=== PATIENT | female | born 1935 | race African-American/Black ===

== ENCOUNTER 2017-12-01 07:41 | Inpatient (IN) ==
[2017-12-01] MEDS ORDERED: hydrALAZINE 20 MG/1 ML VIAL IV STA (09:12)
[2017-12-01] MEDS ORDERED: ONDANSETRON 4 MG/2 ML VIAL IV PRN (09:12)
[2017-12-01 09:15] LABS: Basophils # 0.1 10*3/uL (0.0-0.2); Basophils % 0.6 % (0.0-0.8); Eosinophils # 0.4 10*3/uL (0.0-0.87); Eosinophils % 3.1 % (0.00-10.9); Hemoglobin 11.9 GM/DL (12.0-16.0); Immature Granulocytes % 0.5 %; Immature Granulocytes Absolute 0.06 #; Lymphocytes # 1.1 10*3/uL (1.4-4.0); Lymphocytes % 8.7 % (21.3-54.2); Mean Corpuscular Hemoglobin 34 PG (27-34); Mean Corpuscular Volume 99.2 FL (87-102); Mean Platelet Volume 11.1 FL (9.6-12.0); Monocytes # 0.7 10*3/uL (0.11-0.8); Monocytes % 5.5 % (1.7-12.7); Neutrophils # 10.1 10*3/uL (1.4-7.4); Neutrophils % 81.6 % (38.7-73.9); Platelet Count 226 T/CUMM (130-400); Red Blood Count 3.53 MC/CUMM (3.8-5.5); Red Cell Distribution Width 18.6 % (9.3-17.3); White Blood Count 12.4 T/CUMM (4-12)
[2017-12-01] MEDS ORDERED: DIPHENOXYLATE/ATROPINE 2.5-0.025 MG TABLET PO PRN (09:16)
[2017-12-01 09:29] LABS: Albumin 3.7 G/DL (3.4-5.0); Calcium 7.8 MG/DL (8.5-10.1); Osmolality,Calculated 286.7 MOS/KG (273-304); Potassium 4.2 MMOL/L (3.5-5.1); Total Protein 7.3 G/DL (6.4-8.3)
[2017-12-01 10:00] LABS: Apearance,Urine CLEAR (Clear); Bacteria,Urine Occasional /HPF (Few); Bilirubin,Urine Negative (Negative); Blood, Urine Negative (Negative); Glucose,Urine (UA) 150 mg/dL (Negative); Ketones,Urine Negative (Negative); Nitrite,Urine Negative (Negative); Protein,Urine 100 MG/DL; RBC,Urine <1 /HPF (0-4); Squamous Epithelial Cell,Urine Occasional /HPF (0-10); Urine Color Straw (Yellow); Urine Specific Gravity 1.005 (1.001-1.035); Urine Urobilinogen < 2.0 EU/DL (0.2-1.0); WBC,Urine 2 /HPF (0-6)
[2017-12-01] MEDS ORDERED: LEVOFLOXACIN INJ 750 MG in PREMIX 1 EACH IV ONE (10:00)
[2017-12-01] MEDS ORDERED: LEVOFLOXACIN INJ 150 ML IV ONE (10:18)
[2017-12-01] MEDS ORDERED: PANTOPRAZOLE 40 MG TABLET PO ONE (10:18)
[2017-12-01] MEDS ORDERED: hydrALAZINE 20 MG/1 ML VIAL ONE (10:18)
[2017-12-01] MEDS: PANTOPRAZOLE 40 MG TABLET PO SCH (10:25)
[2017-12-01] MEDS: ALBUTEROL/IPRATROPIUM 3 ML NEB RESP TX SCH ×4 (10:30→23:41)
[2017-12-01] MEDS: cloNIDine 0.1 MG TABLET PO SCH ×2 (17:00→20:56)
[2017-12-01] MEDS ORDERED: NIFEdipine 10 MG CAPSULE PO PRN (17:22)
[2017-12-01] MEDS: MELATONIN 3 MG TABLET PO SCH (20:56)
[2017-12-02] MEDS: ALBUTEROL/IPRATROPIUM 3 ML NEB RESP TX SCH ×6 (03:20→23:10)
[2017-12-02 05:33] LABS: Basophils # 0.1 10*3/uL (0.0-0.2); Basophils % 0.8 % (0.0-0.8); Eosinophils # 0.2 10*3/uL (0.0-0.87); Eosinophils % 1.6 % (0.00-10.9); Hematocrit 32.6 VOL% (35.7-47.0); Hemoglobin 10.7 GM/DL (12.0-16.0); Immature Granulocytes % 0.5 %; Immature Granulocytes Absolute 0.05 #; Lymphocytes # 1.3 10*3/uL (1.4-4.0); Lymphocytes % 14.2 % (21.3-54.2); Mean Corpuscular HGB Conc 32.8 GM/DL (32-36); Mean Corpuscular Hemoglobin 34 PG (27-34); Mean Corpuscular Volume 102.5 FL (87-102); Mean Platelet Volume 11.3 FL (9.6-12.0); Monocytes # 0.9 10*3/uL (0.11-0.8); Monocytes % 9.7 % (1.7-12.7); Neutrophils # 6.8 10*3/uL (1.4-7.4); Neutrophils % 73.2 % (38.7-73.9); Platelet Count 163 T/CUMM (130-400); Red Blood Count 3.18 MC/CUMM (3.8-5.5); Red Cell Distribution Width 18.3 % (9.3-17.3); White Blood Count 9.3 T/CUMM (4-12)
[2017-12-02 06:19] LABS: Calcium 7.7 MG/DL (8.5-10.1); Osmolality,Calculated 281.7 MOS/KG (273-304); Potassium 4.1 MMOL/L (3.5-5.1); Risk Ratio 3.32; Thyroid Stimulating Hormone 7.56 uIU/ml (0.358-3.74); VLDL CHOLESTEROL 19.4 MG/DL
[2017-12-02] MEDS: LEVOTHYROXINE 25 MCG TABLET PO SCH (06:33)
[2017-12-02] MEDS: METOPROLOL SUCCINATE XL 100 MG TABLET PO SCH (09:14)
[2017-12-02] MEDS: cloNIDine 0.1 MG TABLET PO SCH ×3 (09:14→21:32)
[2017-12-02] MEDS: FERROUS SULFATE 325 MG TABLET PO SCH (09:14)
[2017-12-02] MEDS: LORATADINE 10 MG TABLET PO SCH (09:14)
[2017-12-02] MEDS: PANTOPRAZOLE 40 MG TABLET PO SCH (09:14)
[2017-12-02] MEDS: MELATONIN 3 MG TABLET PO SCH (21:32)
[2017-12-03] MEDS: ALBUTEROL/IPRATROPIUM 3 ML NEB RESP TX SCH ×5 (03:10→20:39)
[2017-12-03] MEDS: LEVOTHYROXINE 25 MCG TABLET PO SCH (06:38)
[2017-12-03 07:19] LABS: Basophils % 0.5 % (0.0-0.8); Eosinophils # 0.9 10*3/uL (0.0-0.87); Eosinophils % 12.1 % (0.00-10.9); Hematocrit 27.5 VOL% (35.7-47.0); Immature Granulocytes % 0.4 %; Immature Granulocytes Absolute 0.03 #; Lymphocytes # 1.2 10*3/uL (1.4-4.0); Mean Corpuscular HGB Conc 32.7 GM/DL (32-36); Mean Corpuscular Hemoglobin 34 PG (27-34); Mean Corpuscular Volume 102.2 FL (87-102); Mean Platelet Volume 11.3 FL (9.6-12.0); Monocytes # 0.8 10*3/uL (0.11-0.8); Monocytes % 10.1 % (1.7-12.7); Neutrophils # 4.8 10*3/uL (1.4-7.4); Neutrophils % 61.9 % (38.7-73.9); Platelet Count 131 T/CUMM (130-400); Red Blood Count 2.69 MC/CUMM (3.8-5.5); Red Cell Distribution Width 17.7 % (9.3-17.3); White Blood Count 7.8 T/CUMM (4-12)
[2017-12-03 07:45] LABS: Eosinophils 10 % (0-10); Hypochromasia 1+; Lymphocytes 10 % (20-55); Segmented Neutrophils 73 % (50-85); Total Cells Counted 100
[2017-12-03 07:46] LABS: Macrocytosis 1+; Platelet Estimate Adequate
[2017-12-03 07:50] LABS: Calcium 7.4 MG/DL (8.5-10.1); Osmolality,Calculated 284.2 MOS/KG (273-304); Potassium 4.7 MMOL/L (3.5-5.1)
[2017-12-03] MEDS ORDERED: LEVOFLOXACIN INJ 500 MG in PREMIX 1 EACH IV SCH (09:00)
[2017-12-03] MEDS: cloNIDine 0.1 MG TABLET PO SCH ×4 (09:12→21:24)
[2017-12-03] MEDS: FERROUS SULFATE 325 MG TABLET PO SCH (09:16)
[2017-12-03] MEDS: LORATADINE 10 MG TABLET PO SCH (09:16)
[2017-12-03] MEDS: PANTOPRAZOLE 40 MG TABLET PO SCH (09:17)
[2017-12-03] MEDS: METOPROLOL SUCCINATE XL 100 MG TABLET PO SCH (09:17)
[2017-12-03] MEDS: ACETAMINOPHEN 325 MG TABLET PO PRN (17:44)
[2017-12-03] MEDS: MELATONIN 3 MG TABLET PO SCH (21:24)
[2017-12-04] MEDS: ALBUTEROL/IPRATROPIUM 3 ML NEB RESP TX SCH ×6 (00:50→19:32)
[2017-12-04] MEDS: ACETAMINOPHEN 325 MG TABLET PO PRN (02:52)
[2017-12-04] MEDS: LEVOTHYROXINE 25 MCG TABLET PO SCH (06:17)
[2017-12-04 06:31] LABS: Basophils % 0.4 % (0.0-0.8); Eosinophils # 1.1 10*3/uL (0.0-0.87); Eosinophils % 15.6 % (0.00-10.9); Hematocrit 28.9 VOL% (35.7-47.0); Hemoglobin 9.6 GM/DL (12.0-16.0); Immature Granulocytes % 0.4 %; Immature Granulocytes Absolute 0.03 #; Lymphocytes % 13.4 % (21.3-54.2); Mean Corpuscular HGB Conc 33.2 GM/DL (32-36); Mean Corpuscular Hemoglobin 33 PG (27-34); Mean Corpuscular Volume 100.7 FL (87-102); Mean Platelet Volume 11.8 FL (9.6-12.0); Monocytes # 0.8 10*3/uL (0.11-0.8); Monocytes % 10.6 % (1.7-12.7); Neutrophils # 4.3 10*3/uL (1.4-7.4); Neutrophils % 59.6 % (38.7-73.9); Platelet Count 120 T/CUMM (130-400); Red Blood Count 2.87 MC/CUMM (3.8-5.5); Red Cell Distribution Width 17.7 % (9.3-17.3); White Blood Count 7.2 T/CUMM (4-12)
[2017-12-04 07:07] LABS: Calcium 7.3 MG/DL (8.5-10.1); Osmolality,Calculated 286.5 MOS/KG (273-304); Potassium 5.1 MMOL/L (3.5-5.1)
[2017-12-04 07:15] LABS: Eosinophils 18 % (0-10); Lymphocytes 10 % (20-55); Segmented Neutrophils 67 % (50-85); Total Cells Counted 100
[2017-12-04 07:16] LABS: Giant Platelets Few; Hypochromasia 1+; Macrocytosis Slight; Ovalocytes Slight; Platelet Estimate Normal
[2017-12-04] MEDS: FERROUS SULFATE 325 MG TABLET PO SCH (09:24)
[2017-12-04] MEDS: cloNIDine 0.1 MG TABLET PO SCH ×3 (09:24→20:34)
[2017-12-04] MEDS: LORATADINE 10 MG TABLET PO SCH (09:24)
[2017-12-04] MEDS: METOPROLOL SUCCINATE XL 100 MG TABLET PO SCH (09:25)
[2017-12-04] MEDS: PANTOPRAZOLE 40 MG TABLET PO SCH (09:25)
[2017-12-04] MEDS: MELATONIN 3 MG TABLET PO SCH (20:34)
[2017-12-05] MEDS: ALBUTEROL/IPRATROPIUM 3 ML NEB RESP TX SCH ×4 (00:24→10:35)
[2017-12-05] MEDS: LEVOTHYROXINE 25 MCG TABLET PO SCH (06:17)
[2017-12-05] MEDS ORDERED: LEVOFLOXACIN 500 MG TABLET PO SCH (07:30)
[2017-12-05] MEDS: cloNIDine 0.1 MG TABLET PO SCH ×2 (09:09→14:26)
[2017-12-05] MEDS: PANTOPRAZOLE 40 MG TABLET PO SCH (09:09)
[2017-12-05] MEDS: FERROUS SULFATE 325 MG TABLET PO SCH (09:09)
[2017-12-05] MEDS: METOPROLOL SUCCINATE XL 100 MG TABLET PO SCH (09:09)
[2017-12-05] MEDS: LORATADINE 10 MG TABLET PO SCH (09:09)
[2017-12-05] MEDS ORDERED: TUBERCULIN SKIN TEST 0.1 ML SYRINGE INTRADERM ONE (11:36)
[2017-12-05] MEDS ORDERED: BISACODYL 5 MG TABLET PO ONE (14:46)
[2017-12-05 17:16] VITALS: BP 158/55
== END 2017-12-05 16:55 | DRG 291 ==
LOC: EDUNIT# → EDBD → N.ED 07:41 → N.EDINP 08:37 → N.5E 14:55
PROVIDERS: ADMIT Internal Medicine; ATTEND Internal Medicine

== ENCOUNTER 2018-07-05 03:52 | Inpatient (IN) ==
[2018-07-05] MEDS ORDERED: SODIUM CHLORIDE 0.9% 1,000 ML IV STA (04:12)
[2018-07-05] MEDS ORDERED: ONDANSETRON 4 MG/2 ML VIAL IV STA (04:12)
[2018-07-05] MEDS ORDERED: MORPHINE 4 MG/1 ML VIAL IV STA (04:12)
[2018-07-05 04:21] LABS: Basophils % 0.3 % (0.0-0.8); Eosinophils # 0.1 10*3/uL (0.0-0.87); Hematocrit 38.2 VOL% (35.7-47.0); Hemoglobin 12.6 GM/DL (12.0-16.0); Immature Granulocytes % 0.4 %; Immature Granulocytes Absolute 0.05 #; Lymphocytes # 0.9 10*3/uL (1.4-4.0); Lymphocytes % 7.4 % (21.3-54.2); Mean Corpuscular Hemoglobin 32 PG (27-34); Mean Corpuscular Volume 98.2 FL (87-102); Mean Platelet Volume 10.8 FL (9.6-12.0); Monocytes % 8.3 % (1.7-12.7); Neutrophils # 9.5 10*3/uL (1.4-7.4); Neutrophils % 82.6 % (38.7-73.9); Platelet Count 166 T/CUMM (130-400); Red Blood Count 3.89 MC/CUMM (3.8-5.5); Red Cell Distribution Width 14.6 % (9.3-17.3); White Blood Count 11.5 T/CUMM (4-12)
[2018-07-05 04:46] LABS: Alanine Aminotransferase 15 U/L (13-56); Alkaline Phosphatase 102 U/L (45-117); Aspartate Amino Transferase 17 U/L (0-37); Blood Urea Nitrogen 23 MG/DL (7-18); Calcium 7.9 MG/DL (8.5-10.1); Glucose 125 MG/DL (74-106); Osmolality,Calculated 274.1 MOS/KG (273-304); Potassium 3.2 MMOL/L (3.5-5.1); Sodium 135 MMOL/L (136-145); Total Protein 8.2 G/DL (6.4-8.3)
[2018-07-05 04:47] LABS: Lactic Acid 3.6 MMOL/L (0.4-2.0)
[2018-07-05] MEDS ORDERED: ceFAZolin 1,000 MG VIAL ONE (10:49)
[2018-07-05] MEDS: PANTOPRAZOLE 40 MG TABLET PO SCH (10:56)
[2018-07-05] MEDS ORDERED: EPOETIN ALFA 10,000 UNIT/1 ML VIAL IV PRN (11:26)
[2018-07-05] MEDS ORDERED: LIDOCAINE 1%/EPI INJ 20 ML VIAL ONE (12:08)
[2018-07-05] MEDS ORDERED: hydrALAZINE 20 MG/1 ML VIAL IV PRN (13:10)
[2018-07-05 13:40] LABS: Basophils % 0.2 % (0.0-0.8); Eosinophils # 0.7 10*3/uL (0.0-0.87); Eosinophils % 4.5 % (0.00-10.9); Hematocrit 34.4 VOL% (35.7-47.0); Hemoglobin 11.6 GM/DL (12.0-16.0); Immature Granulocytes % 0.3 %; Immature Granulocytes Absolute 0.05 #; Lymphocytes # 2.4 10*3/uL (1.4-4.0); Lymphocytes % 16.2 % (21.3-54.2); Mean Corpuscular HGB Conc 33.7 GM/DL (32-36); Mean Corpuscular Hemoglobin 34 PG (27-34); Mean Corpuscular Volume 99.7 FL (87-102); Monocytes % 6.9 % (1.7-12.7); Neutrophils # 10.7 10*3/uL (1.4-7.4); Neutrophils % 71.9 % (38.7-73.9); Platelet Count 186 T/CUMM (130-400); Red Blood Count 3.45 MC/CUMM (3.8-5.5); Red Cell Distribution Width 14.9 % (9.3-17.3); White Blood Count 14.9 T/CUMM (4-12)
[2018-07-05 14:15] LABS: Calcium 6.6 MG/DL (8.5-10.1); Osmolality,Calculated 282.7 MOS/KG (273-304); Potassium 2.7 MMOL/L (3.5-5.1)
[2018-07-05] MEDS: POTASSIUM CHLORIDE 20 MEQ TABLET PO PRN ×4 (14:17→20:20)
[2018-07-05] MEDS ORDERED: PHENYLEPHRINE 10 MG/1 ML VIAL IV ONE (14:26)
[2018-07-05] MEDS ORDERED: ETOMIDATE 40 MG/20 ML VIAL IV ONE (14:26)
[2018-07-05] MEDS ORDERED: PROPOFOL 200 MG/20 ML VIAL IV ONE (14:26)
[2018-07-05] MEDS ORDERED: fentaNYL 100 MCG/2 ML VIAL ONE (14:26)
[2018-07-05] MEDS ORDERED: SEVOFLURANE 1 UNIT/15 MINUTE INH ONE (14:26)
[2018-07-05] MEDS ORDERED: NEOSTIGMINE 10 MG/10 ML VIAL ONE (14:27)
[2018-07-05] MEDS ORDERED: GLYCOPYRROLATE 0.4 MG/2 ML VIAL ONE (14:27)
[2018-07-05] MEDS ORDERED: SODIUM CHLORIDE 0.9% 250 ML IV ONE (14:27)
[2018-07-05] MEDS ORDERED: ACETAMINOPHEN 1,000 MG/100 ML VIAL IV ONE (14:27)
[2018-07-05] MEDS ORDERED: ROCURONIUM 100 MG/10 ML VIAL IV ONE (14:27)
[2018-07-05] MEDS ORDERED: SUCCINYLCHOLINE 200 MG/10 ML VIAL ONE (14:27)
[2018-07-05] MEDS: SEVELAMER CARBONATE POWDER 2.4 GM PACK PO SCH (15:59)
[2018-07-05] MEDS: MORPHINE 4 MG/1 ML VIAL IV PRN ×2 (17:14→20:37)
[2018-07-05] MEDS: ONDANSETRON 4 MG/2 ML VIAL IV PRN (17:55)
[2018-07-05] MEDS: MELATONIN 3 MG TABLET PO SCH (20:20)
[2018-07-05] MEDS: SERTRALINE 25 MG TABLET PO SCH (20:20)
[2018-07-05] MEDS: cloNIDine 0.1 MG TABLET PO SCH (20:21)
[2018-07-05] MEDS: ENOXAPARIN 30 MG/0.3 ML SYRINGE SUBCUT SCH (20:21)
[2018-07-06] MEDS: MORPHINE 4 MG/1 ML VIAL IV PRN ×4 (00:14→19:17)
[2018-07-06 02:46] LABS: Basophils % 0.2 % (0.0-0.8); Eosinophils # 0.3 10*3/uL (0.0-0.87); Eosinophils % 2.7 % (0.00-10.9); Hematocrit 36.6 VOL% (35.7-47.0); Hemoglobin 11.9 GM/DL (12.0-16.0); Immature Granulocytes % 0.4 %; Immature Granulocytes Absolute 0.05 #; Lymphocytes # 0.6 10*3/uL (1.4-4.0); Lymphocytes % 4.6 % (21.3-54.2); Mean Corpuscular HGB Conc 32.5 GM/DL (32-36); Mean Corpuscular Hemoglobin 33 PG (27-34); Mean Corpuscular Volume 101.1 FL (87-102); Monocytes # 0.8 10*3/uL (0.11-0.8); Monocytes % 6.4 % (1.7-12.7); Neutrophils # 10.9 10*3/uL (1.4-7.4); Neutrophils % 85.7 % (38.7-73.9); Platelet Count 187 T/CUMM (130-400); Red Blood Count 3.62 MC/CUMM (3.8-5.5); Red Cell Distribution Width 15.2 % (9.3-17.3); White Blood Count 12.7 T/CUMM (4-12)
[2018-07-06 03:05] LABS: Apearance,Urine Slightly Hazy (Clear); Bacteria,Urine Occasional /HPF (Few); Bilirubin,Urine Negative (Negative); Blood, Urine Moderate mg/dL (Negative); Glucose,Urine (UA) 50 mg/dL (Negative); Ketones,Urine Negative (Negative); Nitrite,Urine Negative (Negative); Protein,Urine 100 MG/DL; RBC,Urine 27 /HPF (0-4); Squamous Epithelial Cell,Urine Occasional /HPF (0-10); Urine Color Straw (Yellow); Urine Specific Gravity 1.006 (1.001-1.035); Urine Urobilinogen < 2.0 EU/DL (0.2-1.0); WBC,Urine 2 /HPF (0-6)
[2018-07-06 03:06] LABS: Calcium 7.1 MG/DL (8.5-10.1); Osmolality,Calculated 284.7 MOS/KG (273-304)
[2018-07-06 03:49] LABS: Anisocytosis 1+; Band Neutrophils 11 % (0-10); Eosinophils 3 % (0-10); Lymphocytes 2 % (20-55); Myelocytes 1 %; Platelet Estimate Adequate; Segmented Neutrophils 79 % (50-85); Total Cells Counted 100
[2018-07-06] MEDS ORDERED: FERROUS SULFATE 325 MG TABLET PO SCH (09:00)
[2018-07-06] MEDS: PANTOPRAZOLE 40 MG TABLET PO SCH (09:25)
[2018-07-06] MEDS: LEVOTHYROXINE 50 MCG TABLET PO SCH (09:25)
[2018-07-06] MEDS: cloNIDine 0.1 MG TABLET PO SCH ×3 (09:25→21:28)
[2018-07-06] MEDS: amLODIPine 10 MG TABLET PO SCH (09:26)
[2018-07-06] MEDS: CINACALCET 30 MG TABLET PO SCH (09:34)
[2018-07-06] MEDS: SEVELAMER CARBONATE POWDER 2.4 GM PACK PO SCH ×2 (17:51→17:52)
[2018-07-06] MEDS: MELATONIN 3 MG TABLET PO SCH (21:28)
[2018-07-06] MEDS: SERTRALINE 25 MG TABLET PO SCH (21:28)
[2018-07-06] MEDS: ENOXAPARIN 30 MG/0.3 ML SYRINGE SUBCUT SCH (21:31)
[2018-07-07 04:42] LABS: Calcium 6.9 MG/DL (8.5-10.1); Osmolality,Calculated 277.7 MOS/KG (273-304); Potassium 4.4 MMOL/L (3.5-5.1)
[2018-07-07] MEDS: LEVOTHYROXINE 50 MCG TABLET PO SCH (06:54)
[2018-07-07] MEDS: SEVELAMER CARBONATE POWDER 2.4 GM PACK PO SCH ×3 (08:00→18:00)
[2018-07-07] MEDS: CINACALCET 30 MG TABLET PO SCH (09:13)
[2018-07-07] MEDS: amLODIPine 10 MG TABLET PO SCH (09:13)
[2018-07-07] MEDS: PANTOPRAZOLE 40 MG TABLET PO SCH (09:13)
[2018-07-07] MEDS: cloNIDine 0.1 MG TABLET PO SCH ×3 (09:15→20:20)
[2018-07-07] MEDS: ONDANSETRON 4 MG/2 ML VIAL IV PRN (17:51)
[2018-07-07] MEDS: ENOXAPARIN 30 MG/0.3 ML SYRINGE SUBCUT SCH (20:20)
[2018-07-07] MEDS: SERTRALINE 25 MG TABLET PO SCH (20:20)
[2018-07-07] MEDS: MELATONIN 3 MG TABLET PO SCH (20:20)
[2018-07-08 05:28] LABS: Basophils % 0.5 % (0.0-0.8); Eosinophils # 0.2 10*3/uL (0.0-0.87); Eosinophils % 4.4 % (0.00-10.9); Hematocrit 29.6 VOL% (35.7-47.0); Hemoglobin 9.6 GM/DL (12.0-16.0); Immature Granulocytes % 0.8 %; Immature Granulocytes Absolute 0.03 #; Lymphocytes # 0.5 10*3/uL (1.4-4.0); Mean Corpuscular HGB Conc 32.4 GM/DL (32-36); Mean Corpuscular Hemoglobin 33 PG (27-34); Mean Platelet Volume 11.1 FL (9.6-12.0); Monocytes # 0.5 10*3/uL (0.11-0.8); Monocytes % 13.8 % (1.7-12.7); Neutrophils # 2.6 10*3/uL (1.4-7.4); Neutrophils % 68.5 % (38.7-73.9); Platelet Count 170 T/CUMM (130-400); Red Blood Count 2.93 MC/CUMM (3.8-5.5); Red Cell Distribution Width 14.9 % (9.3-17.3); White Blood Count 3.8 T/CUMM (4-12)
[2018-07-08 05:51] LABS: Hypochromasia 1+; Macrocytosis Slight; Platelet Estimate Adequate
[2018-07-08 05:57] LABS: Albumin 3.1 G/DL (3.4-5.0); Calcium 6.6 MG/DL (8.5-10.1); Osmolality,Calculated 282.1 MOS/KG (273-304); Potassium 5.1 MMOL/L (3.5-5.1)
[2018-07-08] MEDS: LEVOTHYROXINE 50 MCG TABLET PO SCH (07:07)
[2018-07-08] MEDS: CINACALCET 30 MG TABLET PO SCH (09:21)
[2018-07-08] MEDS: SEVELAMER CARBONATE POWDER 2.4 GM PACK PO SCH ×3 (09:21→17:32)
[2018-07-08] MEDS: cloNIDine 0.1 MG TABLET PO SCH ×3 (09:21→21:58)
[2018-07-08] MEDS: amLODIPine 10 MG TABLET PO SCH (09:21)
[2018-07-08] MEDS: PANTOPRAZOLE 40 MG TABLET PO SCH (09:21)
[2018-07-08 16:03] LABS: Hematocrit 34.3 VOL% (35.7-47.0); Hemoglobin 11.2 GM/DL (12.0-16.0)
[2018-07-08] MEDS: MELATONIN 3 MG TABLET PO SCH (21:57)
[2018-07-08] MEDS: ENOXAPARIN 30 MG/0.3 ML SYRINGE SUBCUT SCH (21:57)
[2018-07-08] MEDS: SERTRALINE 25 MG TABLET PO SCH (21:58)
[2018-07-09 06:21] LABS: Basophils # 0.1 10*3/uL (0.0-0.2); Basophils % 0.9 % (0.0-0.8); Eosinophils # 0.2 10*3/uL (0.0-0.87); Eosinophils % 3.2 % (0.00-10.9); Hematocrit 33.7 VOL% (35.7-47.0); Hemoglobin 11.1 GM/DL (12.0-16.0); Immature Granulocytes % 3.9 %; Immature Granulocytes Absolute 0.27 #; Lymphocytes # 1.1 10*3/uL (1.4-4.0); Lymphocytes % 15.4 % (21.3-54.2); Mean Corpuscular HGB Conc 32.9 GM/DL (32-36); Mean Corpuscular Hemoglobin 32 PG (27-34); Mean Corpuscular Volume 98.3 FL (87-102); Mean Platelet Volume 10.9 FL (9.6-12.0); Monocytes # 1.1 10*3/uL (0.11-0.8); NRBC # 0.09 10*3/uL; Neutrophils # 4.2 10*3/uL (1.4-7.4); Neutrophils % 60.6 % (38.7-73.9); Platelet Count 157 T/CUMM (130-400); Red Blood Count 3.43 MC/CUMM (3.8-5.5); Red Cell Distribution Width 15.7 % (9.3-17.3); White Blood Count 6.9 T/CUMM (4-12)
[2018-07-09 06:40] LABS: Albumin 3.2 G/DL (3.4-5.0); Calcium 7.3 MG/DL (8.5-10.1); Osmolality,Calculated 276.1 MOS/KG (273-304); Potassium 4.1 MMOL/L (3.5-5.1)
[2018-07-09 06:44] LABS: Band Neutrophils 7 % (0-10); Eosinophils 3 % (0-10); Hypochromasia 1+; Lymphocytes 12 % (20-55); Macrocytosis Slight; Nucleated Red Blood Cells 1 (0-5); Platelet Estimate Adequate; Segmented Neutrophils 62 % (50-85); Total Cells Counted 100
[2018-07-09 06:45] LABS: Polychromasia Slight
[2018-07-09] MEDS: LEVOTHYROXINE 50 MCG TABLET PO SCH (06:58)
[2018-07-09] MEDS: CINACALCET 30 MG TABLET PO SCH (09:18)
[2018-07-09] MEDS: cloNIDine 0.1 MG TABLET PO SCH ×3 (09:18→21:45)
[2018-07-09] MEDS: PANTOPRAZOLE 40 MG TABLET PO SCH (09:18)
[2018-07-09] MEDS: amLODIPine 10 MG TABLET PO SCH (09:18)
[2018-07-09] MEDS: SEVELAMER CARBONATE POWDER 2.4 GM PACK PO SCH ×3 (09:19→16:10)
[2018-07-09] MEDS: SERTRALINE 25 MG TABLET PO SCH (21:45)
[2018-07-09] MEDS: MELATONIN 3 MG TABLET PO SCH (21:45)
[2018-07-09] MEDS: ENOXAPARIN 30 MG/0.3 ML SYRINGE SUBCUT SCH (21:45)
[2018-07-10] MEDS: LEVOTHYROXINE 50 MCG TABLET PO SCH (06:14)
[2018-07-10] MEDS: SEVELAMER CARBONATE POWDER 2.4 GM PACK PO SCH ×3 (08:47→17:25)
[2018-07-10] MEDS: CINACALCET 30 MG TABLET PO SCH (08:47)
[2018-07-10] MEDS: PANTOPRAZOLE 40 MG TABLET PO SCH (08:47)
[2018-07-10] MEDS: cloNIDine 0.1 MG TABLET PO SCH ×3 (08:51→20:42)
[2018-07-10] MEDS: amLODIPine 10 MG TABLET PO SCH (14:16)
[2018-07-10] MEDS: ENOXAPARIN 30 MG/0.3 ML SYRINGE SUBCUT SCH (20:42)
[2018-07-10] MEDS: MELATONIN 3 MG TABLET PO SCH (20:43)
[2018-07-10] MEDS: SERTRALINE 25 MG TABLET PO SCH (20:43)
[2018-07-11] MEDS: LEVOTHYROXINE 50 MCG TABLET PO SCH (06:25)
[2018-07-11] MEDS: SEVELAMER CARBONATE POWDER 2.4 GM PACK PO SCH ×2 (08:09→12:18)
[2018-07-11] MEDS: PANTOPRAZOLE 40 MG TABLET PO SCH (08:10)
[2018-07-11] MEDS: CINACALCET 30 MG TABLET PO SCH (08:10)
[2018-07-11] MEDS: cloNIDine 0.1 MG TABLET PO SCH (08:10)
[2018-07-11] MEDS: amLODIPine 10 MG TABLET PO SCH (08:10)
[2018-07-11 12:31] VITALS: BP 109/57
== END 2018-07-11 12:45 | disposition home health service (06) | DRG 335 ==
LOC: EDUNIT# → EDBD → N.ED 03:52 → N.EDINP 05:44 → N.5E 06:28 → N.ICU 11:03 → N.3E 07-07 18:03
PROVIDERS: ADMIT Surgery; ATTEND Surgery

== ENCOUNTER 2018-08-04 13:37 | Inpatient (IN) ==
[2018-08-04 14:38] LABS: Albumin 3.6 G/DL (3.4-5.0); Bilirubin,Total 0.7 MG/DL (0.2-1.0); Calcium 7.8 MG/DL (8.5-10.1); Osmolality,Calculated 276.5 MOS/KG (273-304); Potassium 3.5 MMOL/L (3.5-5.1)
[2018-08-04 14:46] LABS: Apearance,Urine CLEAR (Clear); Bilirubin,Urine Negative (Negative); Blood, Urine Negative (Negative); Glucose,Urine (UA) 50 mg/dL (Negative); Hyaline Casts,Urine 1 /LPF (0-3); Ketones,Urine Negative (Negative); Nitrite,Urine Negative (Negative); Protein,Urine 100 MG/DL; RBC,Urine <1 /HPF (0-4); Squamous Epithelial Cell,Urine Occasional /HPF (0-10); Urine Color Yellow (Yellow); Urine Specific Gravity 1.005 (1.001-1.035); Urine Urobilinogen < 2.0 EU/DL (0.2-1.0); WBC,Urine <1 /HPF (0-6)
[2018-08-04 15:58] LABS: Basophils # 0.1 10*3/uL (0.0-0.2); Eosinophils # 0.3 10*3/uL (0.0-0.87); Eosinophils % 4.8 % (0.00-10.9); Hematocrit 45.9 VOL% (35.7-47.0); Hemoglobin 14.9 GM/DL (12.0-16.0); Immature Granulocytes % 0.4 %; Immature Granulocytes Absolute 0.02 #; Lymphocytes % 37.1 % (21.3-54.2); Mean Corpuscular HGB Conc 32.5 GM/DL (32-36); Mean Corpuscular Hemoglobin 31 PG (27-34); Mean Corpuscular Volume 96.4 FL (87-102); Mean Platelet Volume 11.5 FL (9.6-12.0); Monocytes # 0.5 10*3/uL (0.11-0.8); Monocytes % 8.4 % (1.7-12.7); Neutrophils # 2.5 10*3/uL (1.4-7.4); Neutrophils % 47.3 % (38.7-73.9); Platelet Count 234 T/CUMM (130-400); Red Blood Count 4.76 MC/CUMM (3.8-5.5); Red Cell Distribution Width 14.6 % (9.3-17.3); White Blood Count 5.4 T/CUMM (4-12)
[2018-08-04] MEDS ORDERED: MORPHINE 4 MG/1 ML VIAL IV PRN (16:47)
[2018-08-04] MEDS ORDERED: LIDOCAINE/PRILOCAINE CREAM 5 GM TUBE TOP PRN (16:51)
[2018-08-04] MEDS ORDERED: hydrALAZINE 20 MG/1 ML VIAL IV PRN (17:07)
[2018-08-04] MEDS: SODIUM CHLORIDE 0.9% 1,000 ML IV SCH (20:34)
[2018-08-04] MEDS ORDERED: ONDANSETRON 4 MG/2 ML VIAL IV PRN (23:41)
[2018-08-04] MEDS: SERTRALINE 25 MG TABLET PO SCH (23:57)
[2018-08-04] MEDS: MELATONIN 3 MG TABLET PO SCH (23:57)
[2018-08-04] MEDS: cloNIDine 0.1 MG TABLET PO SCH (23:57)
[2018-08-05 01:33] LABS: Basophils # 0.1 10*3/uL (0.0-0.2); Basophils % 1.3 % (0.0-0.8); Eosinophils # 0.4 10*3/uL (0.0-0.87); Eosinophils % 5.5 % (0.00-10.9); Hematocrit 37.4 VOL% (35.7-47.0); Immature Granulocytes % 0.4 %; Immature Granulocytes Absolute 0.03 #; Lymphocytes % 26.1 % (21.3-54.2); Mean Corpuscular HGB Conc 32.1 GM/DL (32-36); Mean Corpuscular Hemoglobin 31 PG (27-34); Mean Corpuscular Volume 95.9 FL (87-102); Mean Platelet Volume 10.9 FL (9.6-12.0); Monocytes # 0.9 10*3/uL (0.11-0.8); Monocytes % 12.4 % (1.7-12.7); Neutrophils # 4.1 10*3/uL (1.4-7.4); Neutrophils % 54.3 % (38.7-73.9); Platelet Count 187 T/CUMM (130-400); Red Cell Distribution Width 14.9 % (9.3-17.3); White Blood Count 7.5 T/CUMM (4-12)
[2018-08-05 01:53] LABS: Lactic Acid 0.8 MMOL/L (0.4-2.0)
[2018-08-05 02:20] LABS: Calcium 7.6 MG/DL (8.5-10.1); Osmolality,Calculated 285.1 MOS/KG (273-304); Potassium 3.5 MMOL/L (3.5-5.1)
[2018-08-05 02:23] LABS: Risk Ratio 3.27
[2018-08-05] MEDS: LEVOTHYROXINE 50 MCG TABLET PO SCH ×2 (06:04→10:12)
[2018-08-05] MEDS: SODIUM CHLORIDE 0.9% 1,000 ML IV SCH ×2 (07:00→18:41)
[2018-08-05] MEDS ORDERED: hydrALAZINE 20 MG/1 ML VIAL IV PRN (07:37)
[2018-08-05] MEDS: SEVELAMER CARBONATE POWDER 2.4 GM PACK PO SCH ×3 (08:00→17:00)
[2018-08-05] MEDS: amLODIPine 10 MG TABLET PO SCH (10:12)
[2018-08-05] MEDS: FERROUS SULFATE 325 MG TABLET PO SCH (10:12)
[2018-08-05] MEDS: PANTOPRAZOLE 40 MG VIAL IV SCH (10:12)
[2018-08-05] MEDS: CINACALCET 30 MG TABLET PO SCH (10:12)
[2018-08-05] MEDS: cloNIDine 0.1 MG TABLET PO SCH ×3 (10:12→21:32)
[2018-08-05] MEDS: SERTRALINE 25 MG TABLET PO SCH (21:32)
[2018-08-05] MEDS: MELATONIN 3 MG TABLET PO SCH (21:32)
[2018-08-05] MEDS: PIPERACILLIN/TAZOBACTAM 3,375 MG in SODIUM CHLORIDE 0.9% 100 ML IV SCH (21:33)
[2018-08-06] MEDS: LEVOTHYROXINE 50 MCG TABLET PO SCH (06:22)
[2018-08-06 06:45] LABS: Basophils # 0.1 10*3/uL (0.0-0.2); Basophils % 0.7 % (0.0-0.8); Eosinophils # 0.4 10*3/uL (0.0-0.87); Eosinophils % 3.2 % (0.00-10.9); Hematocrit 34.1 VOL% (35.7-47.0); Hemoglobin 10.7 GM/DL (12.0-16.0); Immature Granulocytes % 0.5 %; Immature Granulocytes Absolute 0.05 #; Lymphocytes % 9.3 % (21.3-54.2); Mean Corpuscular HGB Conc 31.4 GM/DL (32-36); Mean Corpuscular Hemoglobin 31 PG (27-34); Mean Corpuscular Volume 99.1 FL (87-102); Mean Platelet Volume 11.1 FL (9.6-12.0); Monocytes # 0.9 10*3/uL (0.11-0.8); Monocytes % 8.5 % (1.7-12.7); Neutrophils # 8.6 10*3/uL (1.4-7.4); Neutrophils % 77.8 % (38.7-73.9); Platelet Count 139 T/CUMM (130-400); Red Blood Count 3.44 MC/CUMM (3.8-5.5); Red Cell Distribution Width 14.8 % (9.3-17.3); White Blood Count 11.1 T/CUMM (4-12)
[2018-08-06 07:02] LABS: Calcium 6.1 MG/DL (8.5-10.1); Potassium 3.3 MMOL/L (3.5-5.1)
[2018-08-06 07:36] LABS: Free T4 (Free Thyroxine) 1.22 NG/DL (0.76-1.46)
[2018-08-06] MEDS: CINACALCET 30 MG TABLET PO SCH (08:57)
[2018-08-06] MEDS: cloNIDine 0.1 MG TABLET PO SCH ×3 (08:57→20:35)
[2018-08-06] MEDS: FERROUS SULFATE 325 MG TABLET PO SCH (08:58)
[2018-08-06] MEDS: amLODIPine 10 MG TABLET PO SCH (08:58)
[2018-08-06] MEDS: PIPERACILLIN/TAZOBACTAM 3,375 MG in SODIUM CHLORIDE 0.9% 100 ML IV SCH ×2 (09:02→21:52)
[2018-08-06] MEDS: PANTOPRAZOLE 40 MG VIAL IV SCH (09:02)
[2018-08-06] MEDS: SEVELAMER CARBONATE POWDER 2.4 GM PACK PO SCH ×3 (09:08→17:22)
[2018-08-06] MEDS: MELATONIN 3 MG TABLET PO SCH (20:34)
[2018-08-06] MEDS: SERTRALINE 25 MG TABLET PO SCH (20:35)
[2018-08-07 05:05] LABS: Basophils # 0.1 10*3/uL (0.0-0.2); Basophils % 1.1 % (0.0-0.8); Eosinophils # 0.7 10*3/uL (0.0-0.87); Eosinophils % 12.4 % (0.00-10.9); Hematocrit 31.6 VOL% (35.7-47.0); Hemoglobin 9.8 GM/DL (12.0-16.0); Immature Granulocytes % 0.2 %; Immature Granulocytes Absolute 0.01 #; Lymphocytes # 1.3 10*3/uL (1.4-4.0); Lymphocytes % 22.5 % (21.3-54.2); Mean Corpuscular Hemoglobin 31 PG (27-34); Mean Corpuscular Volume 98.4 FL (87-102); Mean Platelet Volume 11.5 FL (9.6-12.0); Monocytes # 0.5 10*3/uL (0.11-0.8); Monocytes % 9.4 % (1.7-12.7); Neutrophils # 3.1 10*3/uL (1.4-7.4); Neutrophils % 54.4 % (38.7-73.9); Platelet Count 135 T/CUMM (130-400); Red Blood Count 3.21 MC/CUMM (3.8-5.5); Red Cell Distribution Width 14.5 % (9.3-17.3); White Blood Count 5.7 T/CUMM (4-12)
[2018-08-07 05:36] LABS: Band Neutrophils 4 % (0-10); Eosinophils 13 % (0-10); Lymphocytes 27 % (20-55); Platelet Estimate Adequate; Segmented Neutrophils 51 % (50-85); Total Cells Counted 100
[2018-08-07 05:39] LABS: Anisocytosis 2+; Calcium 6.8 MG/DL (8.5-10.1); Macrocytosis 1+; Osmolality,Calculated 275.7 MOS/KG (273-304)
[2018-08-07] MEDS: LEVOTHYROXINE 50 MCG TABLET PO SCH (06:12)
[2018-08-07] MEDS: SEVELAMER CARBONATE POWDER 2.4 GM PACK PO SCH ×3 (07:44→17:10)
[2018-08-07] MEDS: FERROUS SULFATE 325 MG TABLET PO SCH (08:05)
[2018-08-07] MEDS: CINACALCET 30 MG TABLET PO SCH (08:05)
[2018-08-07] MEDS: PANTOPRAZOLE 40 MG TABLET PO SCH (08:05)
[2018-08-07] MEDS: cloNIDine 0.1 MG TABLET PO SCH ×3 (13:11→21:00)
[2018-08-07] MEDS: amLODIPine 10 MG TABLET PO SCH (13:25)
[2018-08-07] MEDS: PIPERACILLIN/TAZOBACTAM 3,375 MG in SODIUM CHLORIDE 0.9% 100 ML IV SCH (13:34)
[2018-08-07] MEDS: MELATONIN 3 MG TABLET PO SCH (21:00)
[2018-08-07] MEDS: SERTRALINE 25 MG TABLET PO SCH (21:00)
[2018-08-08 04:29] LABS: Basophils # 0.1 10*3/uL (0.0-0.2); Basophils % 1.3 % (0.0-0.8); Eosinophils # 0.7 10*3/uL (0.0-0.87); Eosinophils % 14.3 % (0.00-10.9); Hemoglobin 10.5 GM/DL (12.0-16.0); Immature Granulocytes % 0.2 %; Immature Granulocytes Absolute 0.01 #; Lymphocytes # 1.3 10*3/uL (1.4-4.0); Mean Corpuscular HGB Conc 30.9 GM/DL (32-36); Mean Corpuscular Hemoglobin 30 PG (27-34); Mean Corpuscular Volume 98.6 FL (87-102); Mean Platelet Volume 11.2 FL (9.6-12.0); Monocytes # 0.5 10*3/uL (0.11-0.8); Monocytes % 10.5 % (1.7-12.7); Neutrophils # 2.2 10*3/uL (1.4-7.4); Neutrophils % 46.7 % (38.7-73.9); Platelet Count 143 T/CUMM (130-400); Red Blood Count 3.45 MC/CUMM (3.8-5.5); Red Cell Distribution Width 14.4 % (9.3-17.3); White Blood Count 4.7 T/CUMM (4-12)
[2018-08-08 04:44] LABS: Calcium 7.1 MG/DL (8.5-10.1); Osmolality,Calculated 268.1 MOS/KG (273-304); Potassium 3.8 MMOL/L (3.5-5.1)
[2018-08-08 05:02] LABS: Eosinophils 19 % (0-10); Hypochromasia 1+; Lymphocytes 25 % (20-55); Macrocytosis Slight; Ovalocytes Slight; Platelet Estimate Adequate; Segmented Neutrophils 47 % (50-85); Total Cells Counted 100
[2018-08-08] MEDS: LEVOTHYROXINE 50 MCG TABLET PO SCH (05:52)
[2018-08-08] MEDS: SEVELAMER CARBONATE POWDER 2.4 GM PACK PO SCH ×3 (08:39→17:27)
[2018-08-08] MEDS: cloNIDine 0.1 MG TABLET PO SCH ×3 (09:39→20:45)
[2018-08-08] MEDS: FERROUS SULFATE 325 MG TABLET PO SCH (09:39)
[2018-08-08] MEDS: amLODIPine 10 MG TABLET PO SCH (09:39)
[2018-08-08] MEDS: PANTOPRAZOLE 40 MG TABLET PO SCH (09:40)
[2018-08-08] MEDS: CINACALCET 30 MG TABLET PO SCH (09:40)
[2018-08-08] MEDS: SERTRALINE 25 MG TABLET PO SCH (20:45)
[2018-08-08] MEDS: MELATONIN 3 MG TABLET PO SCH (20:45)
[2018-08-09] MEDS: LEVOTHYROXINE 50 MCG TABLET PO SCH (05:36)
[2018-08-09] MEDS: amLODIPine 10 MG TABLET PO SCH (08:05)
[2018-08-09] MEDS: cloNIDine 0.1 MG TABLET PO SCH ×3 (08:05→21:24)
[2018-08-09] MEDS: CINACALCET 30 MG TABLET PO SCH (08:49)
[2018-08-09] MEDS: SEVELAMER CARBONATE POWDER 2.4 GM PACK PO SCH ×3 (08:49→17:56)
[2018-08-09] MEDS: FERROUS SULFATE 325 MG TABLET PO SCH (08:50)
[2018-08-09] MEDS: PANTOPRAZOLE 40 MG TABLET PO SCH (08:50)
[2018-08-09] MEDS: SERTRALINE 25 MG TABLET PO SCH (21:24)
[2018-08-09] MEDS: MELATONIN 3 MG TABLET PO SCH (21:24)
[2018-08-10] MEDS: LEVOTHYROXINE 50 MCG TABLET PO SCH (05:56)
[2018-08-10] MEDS: SEVELAMER CARBONATE POWDER 2.4 GM PACK PO SCH ×3 (08:33→16:20)
[2018-08-10] MEDS: cloNIDine 0.1 MG TABLET PO SCH ×3 (08:33→21:18)
[2018-08-10] MEDS: FERROUS SULFATE 325 MG TABLET PO SCH (14:12)
[2018-08-10] MEDS: amLODIPine 10 MG TABLET PO SCH (14:13)
[2018-08-10] MEDS: CINACALCET 30 MG TABLET PO SCH (14:14)
[2018-08-10] MEDS: PANTOPRAZOLE 40 MG TABLET PO SCH (14:14)
[2018-08-10] MEDS: MELATONIN 3 MG TABLET PO SCH (21:18)
[2018-08-10] MEDS: SERTRALINE 25 MG TABLET PO SCH (21:18)
[2018-08-11] MEDS: LEVOTHYROXINE 50 MCG TABLET PO SCH (05:58)
[2018-08-11] MEDS: SEVELAMER CARBONATE POWDER 2.4 GM PACK PO SCH ×2 (08:40→12:30)
[2018-08-11] MEDS ORDERED: POLYETHYLENE GLYCOL POWDER 17 GM PACK PO SCH (09:00)
[2018-08-11] MEDS: FERROUS SULFATE 325 MG TABLET PO SCH (09:25)
[2018-08-11] MEDS: amLODIPine 10 MG TABLET PO SCH (09:25)
[2018-08-11] MEDS: PANTOPRAZOLE 40 MG TABLET PO SCH (09:25)
[2018-08-11] MEDS: cloNIDine 0.1 MG TABLET PO SCH (09:25)
[2018-08-11] MEDS: CINACALCET 30 MG TABLET PO SCH (09:25)
[2018-08-11 12:19] VITALS: BP 139/52
== END 2018-08-11 14:20 | disposition home health service (06) | DRG 438 ==
LOC: EDUNIT# → N.ED 13:37 → SUATTDRO 19:39 → N.EDINP 19:39 → N.3E 22:24
PROVIDERS: ADMIT Internal Medicine; ATTEND Internal Medicine

== ENCOUNTER 2020-07-09 09:05 | Observation (INO) ==
[2020-07-09 10:04] LABS: Basophils # 0.1 10*3/uL (0.0-0.2); Basophils % 0.8 % (0.0-0.8); Eosinophils # 0.3 10*3/uL (0.0-0.87); Eosinophils % 5.3 % (0.00-10.9); Hemoglobin 10.6 GM/DL (12.0-16.0); Immature Granulocytes % 0.3 %; Immature Granulocytes Absolute 0.02 #; Lymphocytes # 1.1 10*3/uL (1.4-4.0); Lymphocytes % 18.5 % (21.3-54.2); Mean Corpuscular HGB Conc 33.1 GM/DL (32-36); Mean Corpuscular Volume 102.2 FL (87-102); Mean Platelet Volume 11.1 FL (9.6-12.0); Monocytes % 10.2 % (1.7-12.7); Neutrophils % 64.9 % (38.7-73.9); Platelet Count 150 T/CUMM (130-400); Red Blood Count 3.13 MC/CUMM (3.8-5.5); Red Cell Distribution Width 15.1 % (9.3-17.3); White Blood Count 6.2 T/CUMM (4-12)
[2020-07-09 12:50] LABS: Albumin 3.3 G/DL (3.4-5.0); Bilirubin,Total 0.8 MG/DL (0.2-1.0); Calcium 9.2 MG/DL (8.5-10.1); Osmolality,Calculated 284.8 MOS/KG (273-304)
[2020-07-09] MEDS ORDERED: amLODIPine 5 MG TABLET PO STA (14:21)
[2020-07-09] MEDS ORDERED: DOCUSATE SODIUM 100 MG CAPSULE PO PRN (14:27)
[2020-07-09] MEDS ORDERED: hydrALAZINE 20 MG/1 ML VIAL IV PRN ×2 (14:27→19:32)
[2020-07-09] MEDS ORDERED: DEXTROSE 50% 25 GM/50 ML VIAL IV PRN ×2 (14:27→14:32)
[2020-07-09] MEDS ORDERED: ONDANSETRON 4 MG/2 ML VIAL IV PRN (14:27)
[2020-07-09] MEDS ORDERED: ACETAMINOPHEN 325 MG TABLET PO PRN (14:27)
[2020-07-09 14:58] LABS: Thyroid Stimulating Hormone 3.98 uIU/ml (0.358-3.74)
[2020-07-09] MEDS ORDERED: AZITHROMYCIN 250 MG TABLET PO ONE (15:00)
[2020-07-09] MEDS: cloNIDine 0.1 MG TABLET PO SCH ×2 (17:36→21:03)
[2020-07-09] MEDS: HEPARIN 5,000 UNIT/1 ML VIAL SUBCUT SCH ×2 (17:36→21:03)
[2020-07-09] MEDS: ASCORBIC ACID 500 MG TABLET PO SCH ×2 (17:37→21:03)
[2020-07-09] MEDS: INSULIN LISPRO 100 UNIT/ML SUBCUT SCH ×2 (19:37→21:04)
[2020-07-10 05:45] LABS: Basophils % 0.6 % (0.0-0.8); Eosinophils # 0.1 10*3/uL (0.0-0.87); Eosinophils % 1.9 % (0.00-10.9); Hematocrit 31.4 VOL% (35.7-47.0); Hemoglobin 10.4 GM/DL (12.0-16.0); Immature Granulocytes % 0.4 %; Immature Granulocytes Absolute 0.03 #; Lymphocytes # 1.1 10*3/uL (1.4-4.0); Lymphocytes % 16.3 % (21.3-54.2); Mean Corpuscular HGB Conc 33.1 GM/DL (32-36); Mean Corpuscular Volume 99.7 FL (87-102); Mean Platelet Volume 11.6 FL (9.6-12.0); Monocytes % 8.7 % (1.7-12.7); Neutrophils % 72.1 % (38.7-73.9); Platelet Count 149 T/CUMM (130-400); Red Blood Count 3.15 MC/CUMM (3.8-5.5); Red Cell Distribution Width 15.1 % (9.3-17.3); White Blood Count 6.9 T/CUMM (4-12)
[2020-07-10 05:59] LABS: Osmolality,Calculated 287.8 MOS/KG (273-304)
[2020-07-10] MEDS: INSULIN LISPRO 100 UNIT/ML SUBCUT SCH ×4 (08:53→20:21)
[2020-07-10] MEDS: HEPARIN 5,000 UNIT/1 ML VIAL SUBCUT SCH ×2 (09:01→20:21)
[2020-07-10] MEDS: ASCORBIC ACID 500 MG TABLET PO SCH ×2 (09:01→20:20)
[2020-07-10] MEDS: amLODIPine 10 MG TABLET PO SCH (09:02)
[2020-07-10] MEDS: AZITHROMYCIN 250 MG TABLET PO SCH (09:02)
[2020-07-10] MEDS: cloNIDine 0.1 MG TABLET PO SCH ×3 (09:02→20:20)
[2020-07-10] MEDS: PANTOPRAZOLE 40 MG TABLET PO SCH (09:02)
[2020-07-10] MEDS: ZINC SULFATE 220 MG CAPSULE PO SCH (12:05)
[2020-07-11 06:05] LABS: Basophils # 0.1 10*3/uL (0.0-0.2); Basophils % 0.8 % (0.0-0.8); Eosinophils # 0.3 10*3/uL (0.0-0.87); Eosinophils % 4.8 % (0.00-10.9); Hemoglobin 10.4 GM/DL (12.0-16.0); Immature Granulocytes % 0.2 %; Immature Granulocytes Absolute 0.01 #; Lymphocytes # 1.4 10*3/uL (1.4-4.0); Lymphocytes % 21.9 % (21.3-54.2); Mean Corpuscular HGB Conc 33.5 GM/DL (32-36); Mean Corpuscular Volume 100.3 FL (87-102); Mean Platelet Volume 12.3 FL (9.6-12.0); Monocytes % 11.7 % (1.7-12.7); Neutrophils % 60.6 % (38.7-73.9); Platelet Count 148 T/CUMM (130-400); Red Blood Count 3.09 MC/CUMM (3.8-5.5); Red Cell Distribution Width 15.3 % (9.3-17.3); White Blood Count 6.4 T/CUMM (4-12)
[2020-07-11 06:35] LABS: Calcium 9.1 MG/DL (8.5-10.1)
[2020-07-11] MEDS: INSULIN LISPRO 100 UNIT/ML SUBCUT SCH ×2 (08:55→11:51)
[2020-07-11] MEDS: cloNIDine 0.1 MG TABLET PO SCH (08:56)
[2020-07-11] MEDS: ASCORBIC ACID 500 MG TABLET PO SCH (08:59)
[2020-07-11] MEDS: AZITHROMYCIN 250 MG TABLET PO SCH (08:59)
[2020-07-11] MEDS: ZINC SULFATE 220 MG CAPSULE PO SCH (08:59)
[2020-07-11] MEDS: PANTOPRAZOLE 40 MG TABLET PO SCH (08:59)
[2020-07-11] MEDS: amLODIPine 10 MG TABLET PO SCH (08:59)
[2020-07-11] MEDS ORDERED: MULTIVITAMIN (BEROCCA) TABLET PO SCH (09:00)
[2020-07-11] MEDS: HEPARIN 5,000 UNIT/1 ML VIAL SUBCUT SCH (09:42)
[2020-07-11 11:27] VITALS: BP 145/65
== END 2020-07-11 15:20 | disposition home health service (06) ==
LOC: EDUNIT# → EDBD → N.ED 09:05 → N.EDINP 09:05 → SUATTDRO 13:30 → N.TELEN 15:14
PROVIDERS: ADMIT Hospitalist; ATTEND Family Medicine